=== PATIENT | female | born 1970 | race African-American/Black ===

== ENCOUNTER 2018-09-25 15:55 | Emergency (ER) | payer OTHER ==
[~2018-09-25] VITALS: Ht 160 cm; Wt 93.0 kg
[~2018-09-25 15:55] MED LIST: NAPROSYN500 MG PO; NORCO 5-325 TA1 EACH PO; VALIUM5 MG PO; VALTREX1000 MG PO
[2018-09-25] MEDS ORDERED: KEFLEX500 M1 PO (19:01)
[2018-09-25] MEDS ORDERED: NAPROSYN500 MG PO (19:02)
[2018-09-25 19:22] VITALS: BP 146/92
== END 2018-09-25 19:23 | disposition home or self-care (01) ==
LOC: ER 15:55
DX: N61.0 Mastitis without abscess (principal); Z98.890 Other specified postprocedural states; Z86.018 Personal history of other benign neoplasm